=== PATIENT | female | born 1930 | race Caucasian/White ===

== ENCOUNTER 2016-09-29 10:06 | Inpatient (IN) | payer MEDICARE ==
[2016-05-06 02:05] VITALS: BMI 24.3
[2016-09-29] MEDS ORDERED: MIDAZOLAM 2 MG/2 ML VIAL ONE (10:53)
[2016-09-29] MEDS ORDERED: FENTANYL 100 MCG/2 ML VIAL ONE (10:53)
[2016-09-29] MEDS ORDERED: NALOXONE 0.4 MG/ML AMPULE ONE (10:54)
[2016-09-29] MEDS ORDERED: FLUMAZENIL 0.1 MG/ML INJ 5 ML VIAL IV ONE (10:54)
[2016-09-29] MEDS ORDERED: LIDOCAINE 1% 5 ML (METHYLPARABEN FREE) ONE (10:56)
[2016-09-29 11:01] LABS: PARTIAL THROMB. TIME 25.4 SEC (22-35)
--- NOTE | 2016-09-29 14:18 | DIRPT ---
CLINICAL DATA: Status post left lung biopsy EXAM: CHEST 1 VIEW COMPARISON: None. FINDINGS: Cardiac shadow is again enlarged. Increased density is noted in the left upper lobe consistent with the recent biopsy. No significant pneumothorax is seen. Patchy changes are again seen in both lungs. No bony abnormality is noted. IMPRESSION: No evidence of post biopsy pneumothorax. Electronically Signed By: Harry Ochoa M.D. On: 09/29/2016 14:15
--- NOTE | 2016-09-29 14:19 | DIRPT ---
CLINICAL DATA: Progressive bilateral lung nodules. No known primary. Remote history of breast carcinoma. EXAM: CT GUIDED CORE BIOPSY OF LEFT UPPER LOBE PULMONARY NODULE ANESTHESIA/SEDATION: Intravenous Fentanyl and Versed were administered as conscious sedation during continuous monitoring of the patient's level of consciousness and physiological / cardiorespiratory status by the radiology teacher, with a total moderate sedation time of 55 minutes. PROCEDURE: The procedure risks, benefits, and alternatives were explained to the patient. Questions regarding the procedure were encouraged and answered. The patient understands and consents to the procedure. Select axial scans through the lungs were obtained. Comparison with prior imaging performed, a in home sales representative approachable lesion localized, and the skin entry site marked. The operative field was prepped with chlorhexidinein a sterile fashion, and a sterile drape was applied covering the operative field. A sterile gown and sterile gloves were used for the procedure. Local anesthesia was provided with 1% Lidocaine. Under CT guidance, a 17 gauge trocar needle was advanced to the margin of the lesion. Once needle tip position was confirmed, coaxial 18-gauge core biopsy samples were obtained, submitted in formalin to surgical pathology. The guide needle was removed. Post procedure scans demonstrate mild regional alveolar hemorrhage. There is mild self-limited hemoptysis. No pneumothorax. COMPLICATIONS: SIR level A: No therapy, no consequence. Regional alveolar hemorrhage and mild, self-limited hemoptysis requiring no additional treatment. FINDINGS: Multiple bilateral pulmonary nodules are again identified. A in home sales representative peripheral anterior left upper lobe lesion was identified and core biopsy samples obtained. IMPRESSION: 1. Technically successful CT-guided core biopsy of left upper lobe pulmonary nodule. Follow-up chest radiography and observation is scheduled. Electronically Signed By: Dee Blair M.D. On: 09/29/2016 14:16
--- NOTE | 2016-09-29 14:19 | DIRPT ---
CLINICAL DATA: Progressive bilateral lung nodules. No known primary. Remote history of breast carcinoma. EXAM: CT GUIDED CORE BIOPSY OF LEFT UPPER LOBE PULMONARY NODULE ANESTHESIA/SEDATION: Intravenous Fentanyl and Versed were administered as conscious sedation during continuous monitoring of the patient's level of consciousness and physiological / cardiorespiratory status by the supervisor commissary production, with a total moderate sedation time of 55 minutes. PROCEDURE: The procedure risks, benefits, and alternatives were explained to the patient. Questions regarding the procedure were encouraged and answered. The patient understands and consents to the procedure. Select axial scans through the lungs were obtained. Comparison with prior imaging performed, a manufacturers service representative approachable lesion localized, and the skin entry site marked. The operative field was prepped with chlorhexidinein a sterile fashion, and a sterile drape was applied covering the operative field. A sterile gown and sterile gloves were used for the procedure. Local anesthesia was provided with 1% Lidocaine. Under CT guidance, a 17 gauge trocar needle was advanced to the margin of the lesion. Once needle tip position was confirmed, coaxial 18-gauge core biopsy samples were obtained, submitted in formalin to surgical pathology. The guide needle was removed. Post procedure scans demonstrate mild regional alveolar hemorrhage. There is mild self-limited hemoptysis. No pneumothorax. COMPLICATIONS: SIR level A: No therapy, no consequence. Regional alveolar hemorrhage and mild, self-limited hemoptysis requiring no additional treatment. FINDINGS: Multiple bilateral pulmonary nodules are again identified. A manufacturers service representative peripheral anterior left upper lobe lesion was identified and core biopsy samples obtained. IMPRESSION: 1. Technically successful CT-guided core biopsy of left upper lobe pulmonary nodule. Follow-up chest radiography and observation is scheduled. Electronically Signed By: Dee Blair M.D. On: 09/29/2016 14:16
[2016-09-29] MEDS ORDERED: CLORAZEPATE DIPOTASSIUM 3.75 MG TAB PO ONE (15:00)
[2016-09-29 17:03] LABS: ABG Draw Site Right Radial; ALLEN'S TEST PASS; BEb 2.5 (+/- 2); TCO2 27.4 MMOL/L (23-27)
[2016-09-29] MEDS ORDERED: Albuterol/Ipratropium Neb 3 ML NEB NEB PRN (17:23)
[2016-09-29] MEDS ORDERED: hydrALAZINE 20 MG/ML VIAL IV PRN (17:59)
[2016-09-29] MEDS ORDERED: hydrALAZINE 20 MG/ML VIAL ONE (18:05)
[2016-09-29] MEDS ORDERED: ONDANSETRON HCL 4 MG/2 ML VIAL ONE (18:43)
[2016-09-29] MEDS ORDERED: ONDANSETRON HCL 4 MG/2 ML VIAL IV PRN (18:44)
[2016-09-29] MEDS ORDERED: Vaccine Screening Complete SCH (19:00)
[2016-09-29] MEDS ORDERED: NS 1,000 ML IV ONE (19:21)
--- NOTE | 2016-09-29 19:28 | HISTPHYS ---
- Chief Complaint I had a biopsy mild lung today at 10:15 a.m. and blood pressure has gone up to a systolic of 200 and I coughed/vomited blood at 7:50 p.m. 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 Holliday to center in for lung biopsy today. - Medical History Cardiac History: Reports: Hypertension, Syncope (March 2016) Respiratory History: Reports: No Significant History GI/ History: Reports: Kidney Stones Musculoskeletal History: Reports: Arthritis (bilteral hands) Systemic History: Reports: Cancer (Breast cancer) Psychological History: Reports: Anxiety. Denies: Depression - Surgical History Reports: Cholecystectomy (1989), Tonsillectomy/Adnoidectomy (age 12) - Medictions/Allergies Allergies levofloxacin [From Levaquin] Allergy (Severe, Verified 04/01/16 19:58) Nausea/Vomiting propafenone HCl [From Rythmol] Allergy (Severe, Verified 04/01/16 19:58) Hives* aliskiren hemifumarate [From Tekturna] Allergy (Verified 04/01/16 19:58) Unknown amlodipine besylate [From Exforge] Allergy (Verified 04/01/16 19:58) Unknown clonidine Allergy (Verified 04/01/16 19:58) Nausea/Vomiting nebivolol HCl [From Bystolic] Allergy (Verified 04/01/16 19:58) Nausea/Vomiting olmesartan medoxomil [From Benicar] Allergy (Verified 04/01/16 19:58) Nausea/Vomiting warfarin sodium [From Coumadin] Allergy (Verified 04/01/16 19:58) Bleeding Current Medication List: Reviewed Home Medications Amiodarone [Cordarone, Pacerone] 200 mg PO QAM 03/10/13 Aspirin (Enteric Coated) [Halfprin] 81 mg PO DAILY 03/10/13 Clorazepate Dipotassium 3.75 mg PO Q8H PRN 03/10/13 Red Yeast Rice 600 mg PO DAILY 04/22/15 Anastrozole [Arimidex] 1 mg PO DAILY 04/01/16 Valsartan/Hydrochlorothiazide [Valsartan-Hctz 320-25 mg Tab] 1 tab PO DAILY 06/07 Esomeprazole Mag Trihydrate [Nexium] 40 mg PO DAILY 05/05/16 [place]-3 Fatty Acids/Fish Oil [Fish Oil 1,000 mg Capsule] 1 cap PO DAILY Acetaminophen [Tylenol] 650 mg PO QID #120 tablet 05/10/16 Carvedilol [Coreg] 6.25 mg PO HS #60 tablet 05/10/16 - Family History Reports: Hypertension (mother and fathers side), Cancer (mother- mouth, sister pancreatic ca), Cardiac Disorders (sister). Denies: Diabetes, Stroke - Social History Travel Outside of [place] in the Last 3 Months?: No Lives: With Family (Son stays with her recently) Smoking Status: Never smoker Social History: Denies: Alcohol Use, Other Substance Use - Review of Systems Constitutional: No Symptoms Reported (No Fever, chills, wt loss/gain, diaphoresis,fatigue/malaise.) Eyes: No Symptoms Reported (No blurry vision, visual changes, eye pain, or eye redness.) Ears: No Symptoms Reported (No ear pain or discharge) Nose: No Symptoms Reported (No nasal discharge/congestion or bleeding) Mouth: No Symptoms Reported (No oropharyngeal lesions or erythema) Throat/Neck: No Symptoms Reported (No throat pain or swelling.No oropharyngeal lesions or erythema.) Respiratory: Cough, Hemoptysis Cardiovascular: Palpitations (History of atrial fibrillation) Gastrointestinal: Nausea, Vomiting (Vomited small amount of blood today after lung biopsy and cough) Genitourinary: No Symptoms Reported (No dysuria or hematuria.) Neurological: No Symptoms Reported (No headache, dizziness, seizures, or focal weakness.) Musculoskeletal:: No Symptoms Reported Integumentary: No Symptoms Reported (no rashes or lesions) Allergic/Immunologic: No Symptoms Reported (no rashes or lesions) Hematologic: No Symptoms Reported (No chronic anemia, bleeding, or easy bruising.), Other (Lymphatics- no lymph node swelling or pain.) Endocrine: Osteoporosis Psychiatric: Anxiety - Physical Exam Vital Signs: Initial Vitals Temperature 97.8 F 09/29/16 17:15 Pulse Rate 69 09/29/16 17:15 Respiratory Rate 18 09/29/16 17:15 Blood Pressure 200/79 H 09/29/16 17:15 Pulse Oxygen Saturation 99 09/29/16 17:15 Constitutional: Alert (Awake, Fully oriented. Normal and appropriate affect.Well appearing. Well nourished.), No apparent distress Oriented to: Time, Person, Place - HEENT Head: Normal (normocephalic, atraumatic.), Other (No cervical lymphadenopathy. No supraclavicular lymphadenopathy. Neck: No palpable mass, supple , trachea midline.) Eye: Normal (pupils equal, reactive to light, and round; EOMI, Sclera white) Oropharynx: Normal (Pharynx: Moist without exudate,Gums-no swelling, No oropharyngeal lesions or erythema, Mucous membranes are dry.) ENT EAC: Normal (No oropharyngeal lesions or erythema. Mucous membranes are dry. ) TMJ: Normal Nose: No Symptoms Reported (septum midline, Nares patent, without discharge or bleeding.) Respiratory: Normal - CTA (Clear to auscultation bilaterally. No wheezing, rales , rhonchi. Chest wall movements are symmetric. No use of accessory muscles to breathe.) Cardiovascular: Normal. negative: Bradycardia, Tachycardia, Diastolic murmur, Systolic murmur, Gallop/S3, Gallop/S4 - GI Auscultation: Normal (normal active sounds) Palpation: Normal (Soft,non distended,nontender. No hepatosplenomegaly.) Tenderness: Non tender (No rebound or guarding) 's Sign: Negative - Musculoskeletal Back: Normal (Non-Tender) Extremities: Normal (Normal tone, DP pulses 2+ bilaterally, No cyanosis or edema bilaterally, FROM bilaterally.) Spine: non-tender - Integumentary Skin: Normal (Clean, dry, and intact. No rashes. No lesions.) Lymphatics: Normal (No cervical lymphadenopathy. No supraclavicular lymphadenopathy.) - Neurologic Memory Impaired: Normal Motor Function: Normal (Motor 5/5 throughout.Normal tone, Pulses 2+ No cyanosis or edema, FROM) Cranial Nerve: Normal (CN II-XII intact sensation, strength 5/5) Cerebellar: Normal. negative: Ataxia, Past-Pointing, Tremor Mood Description: Normal (Fully oriented. Normal and appropriate affect.) Perception: Normal (Normal and appropriate affect.) - Focused CV Perfusion Exam Vital Signs: Last Vital Signs Temp 98.2 F 09/29/16 19:05 Pulse 41 L 09/29/16 19:10 Resp 16 09/29/16 19:05 BP 120/48 L 09/29/16 19:16 Pulse Ox 95 09/29/16 19:05 - Lab Results 09/29/16 19:20 09/29/16 19:20 Laboratory Results - last 24 hr 09/29/16 09/29/16 09/29/16 10:38 16:58 19:14 WBC RBC Hgb Hct MCV MCH MCHC RDW Plt Count MPV Neut % (Auto) Lymph % (Auto) [place] % (Auto) Eos % (Auto) Baso % (Auto) Absolute Neuts (auto) Absolute Lymphs (auto) PT 10.7 INR 1.0 APTT 25.4 Puncture Site Right radial pH 7.460 H pCO2 37.0 pO2 86.0 HCO3 26.3 H Total CO2 27.4 H Base Excess 2.5 H FiO2 % 2lpm nc Specimen Drawn By Garsa Sodium Potassium Chloride Carbon Dioxide Anion Gap BUN Creatinine Estimated GFR (MDRD) Glucose POC Capillary Glucose 103 H Calculated Osmolality Calcium Corrected Calcium Magnesium Total Bilirubin AST ALT Alkaline Phosphatase Troponin I Total Protein Albumin 09/29/16 09/29/16 09/29/16 19:20 19:20 19:20 WBC 5.1 RBC 4.03 L Hgb 10.5 L Hct 32.1 L MCV 80 L MCH 26.1 L MCHC 32.7 L RDW 18.2 H Plt Count 233 MPV 8.0 Neut % (Auto) 61.2 Lymph % (Auto) 23.4 [place] % (Auto) 9.5 Eos % (Auto) 4.6 Baso % (Auto) 1.3 Absolute Neuts (auto) 3.11 Absolute Lymphs (auto) 1.17 PT INR APTT Puncture Site pH pCO2 pO2 HCO3 Total CO2 Base Excess FiO2 % Specimen Drawn By Sodium 142 Cancelled Potassium 2.8 L Cancelled Chloride 110 H Cancelled Carbon Dioxide 25 Cancelled Anion Gap 10 Cancelled BUN 21 H Cancelled Creatinine 0.70 Cancelled Estimated GFR (MDRD) > 60 Cancelled Glucose 98 Cancelled POC Capillary Glucose Calculated Osmolality 276 Cancelled Calcium 8.5 Cancelled Corrected Calcium 9.9 Cancelled Magnesium 1.90 Total Bilirubin 0.9 Cancelled AST 75 H Cancelled ALT 67 H Cancelled Alkaline Phosphatase 72 Cancelled Troponin I 0.03 Total Protein 5.6 L Cancelled Albumin 2.6 L Cancelled 09/29/16 19:20 WBC RBC Hgb Hct MCV MCH MCHC RDW Plt Count MPV Neut % (Auto) Lymph % (Auto) [place] % (Auto) Eos % (Auto) Baso % (Auto) Absolute Neuts (auto) Absolute Lymphs (auto) PT INR APTT Puncture Site pH pCO2 pO2 HCO3 Total CO2 Base Excess FiO2 % Specimen Drawn By Sodium Potassium Chloride Carbon Dioxide Anion Gap BUN Creatinine Estimated GFR (MDRD) Glucose POC Capillary Glucose Calculated Osmolality Calcium Corrected Calcium Magnesium Cancelled Total Bilirubin AST ALT Alkaline Phosphatase Troponin I Total Protein Albumin - Diagnostic Findings Repeat chest x-ray this afternoon showed likely small amount of bleeding to the biopsy site and will film repeat in a.m.. - Assessment (1) Pulmonary nodule seen on imaging study R91.1 - SOLITARY PULMONARY NODULE Chronic Present on Admission: Yes Pulmonary nodules more noticeable and biopsy taken left upper lobe lesion with some bleeding post biopsy and patient has coughed up small amount of blood. Monitor hemoglobin and follow-up chest x-ray for pneumothorax and/or hemothorax. Concerned she has another malignancy or metastasis from the breast cancer. (2) Hypokalemia E87.6 - HYPOKALEMIA Acute Present on Admission: Yes Replace and monitor (3) Atrial fibrillation I48.91 - UNSPECIFIED ATRIAL FIBRILLATION Chronic Present on Admission: Yes Qualifiers: Atrial fibrillation type: paroxysmal Qualified Code(s): I48.0 - Paroxysmal atrial fibrillation Patient does not tolerate Coumadin well. (4) Breast cancer C50.919 - MALIGNANT NEOPLASM OF UNSP SITE OF UNSPECIFIED FEMALE BREAST Chronic Present on Admission: Yes Qualifiers: Breast location: unspecified site of breast Laterality: unspecified laterality Qualified Code(s): C50.919 - Malignant neoplasm of unspecified site of unspecified female breast Cont to follow with Dr Holliday. Pt relates difficult time tolerating her chemo pill (5) Gastroesophageal reflux disease K21.9 - GASTRO-ESOPHAGEAL REFLUX DISEASE WITHOUT ESOPHAGITIS Chronic Qualifiers: Esophagitis presence: esophagitis presence not specified Qualified Code(s) : K21.9 - Gastro-esophageal reflux disease without esophagitis Cont PPI (6) Hypertension I10 - ESSENTIAL (PRIMARY) HYPERTENSION Chronic Qualifiers: Hypertension type: essential hypertension Qualified Code(s): I10 - Essential (primary) hypertension Stable on meds (7) Pancreatic mass K86.9 - DISEASE OF PANCREAS, UNSPECIFIED Chronic Present on Admission: Yes Follow-up CT of the abdomen pelvis can be done outpatient to evaluate this pancreatic mass. - Plan Observe overnight if no complications will discharge in am. Repeat chest x-ray and BMP looking for any problems. Case Care Discussed with: Patient, Family, Nursing Staff Total Time: 54 min Critical Care: No Code: [id number]
[2016-09-29 19:56] LABS: AUTOMATED BASOPHIL 1.3 % (0-2); AUTOMATED EOSINOPHIL 4.6 % (0-5); AUTOMATED LYMPH 23.4 % (17-44); AUTOMATED MONOCYTE 9.5 % (3-10); AUTOMATED NEUTROPHIL 61.2 % (45-76)
--- NOTE | 2016-09-29 19:58 | DIRPT ---
CLINICAL DATA: Shortness of breath. Known left upper lobe mass. Left upper lobe mass biopsied earlier today EXAM: PORTABLE CHEST 1 VIEW COMPARISON: Chest CT September 21, 2016; chest radiograph September 29, 2016 FINDINGS: There is increased opacity in the left upper lobe which may be indicative of hemorrhage in the left upper lobe lesion which underwent biopsy earlier today. Developing pneumonia in this area is a differential consideration. Multiple nodular appearing lesions are noted in the lower lung zones and right upper lung region bilaterally consistent with metastatic disease. There is patchy airspace consolidation with small effusion left base. Heart is slightly enlarged with pulmonary vascularity within normal limits. No adenopathy is appreciable by radiography. No pneumothorax. IMPRESSION: Increased opacity in the left upper lobe. Suspect hemorrhage within the mass recently biopsied. There may also be superimposed developing pneumonia in this area. There is patchy airspace consolidation with small effusion in the left base region. There are multiple foci of metastatic disease, better appreciated on recent CT. Stable cardiac silhouette. No pneumothorax evident. Electronically Signed By: Israel Mckenna III, M.D. On: 09/29/2016 19:55
[2016-09-29 20:04] LABS: BLOOD UREA NITROGEN 21 MG/DL (7-17); CALCIUM 8.5 MG/DL (8.4-10.2); CALCULATED OSMOLALITY 276 MOs/Kg (270-290); CHLORIDE 110 mEq/L (98-107); GLUCOSE 98 mg/dL (70-99); SODIUM LEVEL 142 mEq/L (137-146)
[2016-09-29] MEDS: ACETAMINOPHEN 325 MG/TAB TABLET PO SCH (20:15)
[2016-09-29] MEDS ORDERED: Magnesium Sulfate 2 gm/D5W 2 GM/50 ML RTU IV ONE (20:57)
[2016-09-29] MEDS ORDERED: CARVEDILOL 12.5 MG TAB PO SCH (21:00)
[2016-09-29] MEDS ORDERED: CARVEDILOL 6.25 MG TAB PO SCH (21:00)
[2016-09-29 21:21] LABS: CALC CORRECTED 9.9 MG/DL (8.4-10.2); TOTAL PROTEIN 5.6 G/DL (6.3-8.2)
[2016-09-29] MEDS: KCl 10 mEq/100 ml Premix (Run) 10 MEQ/100 ML RTU IV SCH ×2 (21:33→22:59)
[2016-09-29] MEDS: POTASSIUM CHLORIDE 20 MEQ/15 ML ORAL SOLN PO SCH (21:33)
[2016-09-29] MEDS: Albuterol/Ipratropium Neb 3 ML NEB NEB SCH (22:11)
[2016-09-30] MEDS: POTASSIUM CHLORIDE 20 MEQ/15 ML ORAL SOLN PO SCH ×3 (00:19→03:07)
[2016-09-30] MEDS: KCl 10 mEq/100 ml Premix (Run) 10 MEQ/100 ML RTU IV SCH (00:46)
[2016-09-30] MEDS: Albuterol/Ipratropium Neb 3 ML NEB NEB SCH ×4 (02:03→19:17)
[2016-09-30 04:54] LABS: AUTOMATED BASOPHIL 1.3 % (0-2); AUTOMATED EOSINOPHIL 1.5 % (0-5); AUTOMATED LYMPH 24.3 % (17-44); AUTOMATED MONOCYTE 11.2 % (3-10); AUTOMATED NEUTROPHIL 61.7 % (45-76); MPV 8.1 fL (7.4-10.4)
[2016-09-30 05:10] LABS: BLOOD UREA NITROGEN 18 MG/DL (7-17); CALCIUM 8.7 MG/DL (8.4-10.2); CALCULATED OSMOLALITY 274 MOs/Kg (270-290); CHLORIDE 109 mEq/L (98-107); GLUCOSE 108 mg/dL (70-99); SODIUM LEVEL 141 mEq/L (137-146)
[2016-09-30] MEDS: PANTOPRAZOLE 40 MG TAB PO SCH (06:15)
--- NOTE | 2016-09-30 07:33 | DIRPT ---
CLINICAL DATA: Recent lung biopsy with questionable hemothorax EXAM: PORTABLE CHEST 1 VIEW COMPARISON: September 29, 2016 FINDINGS: Compared to 1 day prior, there is less ill-defined opacity surrounding a known mass in the left upper lobe. There is no new opacity. Nodular appearing lesions bilaterally are consistent with metastatic disease. There is patchy airspace consolidation with small effusion in the left base, stable. Heart is slightly enlarged with pulmonary vascularity within normal limits, stable. No demonstrable adenopathy. No pneumothorax. IMPRESSION: Less opacity surrounding known left upper lobe mass. Persistent patchy airspace consolidation with small effusion left base. Evidence of underlying metastatic disease. No change in cardiac silhouette. No new opacity evident. Electronically Signed By: Israel Mckenna III, M.D. On: 09/30/2016 07:31
[2016-09-30] MEDS: ANASTROZOLE 1 MG TAB PO SCH (08:03)
[2016-09-30] MEDS: VALSARTAN 160 MG TAB PO SCH (08:03)
[2016-09-30] MEDS: ACETAMINOPHEN 325 MG/TAB TABLET PO SCH (08:03)
[2016-09-30] MEDS: HYDROCHLOROTHIAZIDE 25 MG TAB PO SCH (08:04)
[2016-09-30] MEDS: OMEGA-3-ACID ETHYL ESTERS 1000 MG CAP PO SCH (08:04)
[2016-09-30] MEDS ORDERED: Non-Formulary Medication ITEM (Esomeprazole Mag Trihydrate [Nexium] 40 MG) PO SCH (09:00)
[2016-09-30] MEDS ORDERED: VALSARTAN PO SCH (09:00)
[2016-09-30] MEDS ORDERED: HYDROCHLOROTHIAZIDE PO SCH (09:00)
[2016-09-30] MEDS ORDERED: RED YEAST RICE 600 MG PO SCH (09:00)
[2016-09-30] MEDS ORDERED: AMIODARONE 200 MG TAB PO SCH (09:00)
[2016-09-30] MEDS ORDERED: [UNRECOGNIZED DRUG - OTHER] PO SCH (09:00)
[2016-09-30] MEDS ORDERED: ATROPINE 1 MG/10 ML PFS IV ONE (10:33)
--- NOTE | 2016-09-30 11:37 | PCM.CARDCO ---
Consultation Date: 09/30/16 Requesting Physician: Jono Farris Pet Caregiver: Tae Winter Consult Reason: Syncope - History of Present Illness histroy of AF on amiodarone and coreg. last night sinus bradycardia with syncope and recurred on commode today, rates in 30"s with SN or AV node block. She related previous episodes Admitted to the hospital after hemoptysis and transient shortness of breath with lung biopsy. For Hypertension she received IV hydralazine developed sinus bradycardia in the 30s and syncope last evening. Similar episode this morning which occurred when she was straining at stool and toilet. She tells me she has had other episodes spontaneously and for atrial fibrillation is maintained on amiodarone and a beta-luis. I had seen her in years and likely decades of before for the same problem. 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 Chief Complaint: I had a biopsy mild lung today at 10:15 a.m. and blood pressure has gone up to a systolic of 200 and I coughed/vomited blood at 7:50 p.m. - Past Medical and Surgical History Cardiac History: Reports: No Significant History, Atrial Fibrillation, Hypertension, Syncope (March 2016) Respiratory History: Reports: No Significant History GI/ History: Reports: No Significant History, Kidney Stones, Gastroesophageal Reflux Systemic History: Reports: No Significant History, Cancer (Breast cancer) Musculoskeletal History: Reports: No Significant History, Arthritis (bilteral hands), Osteoarthritis (Both hands.) Psychological History: Reports: No Significant History, Anxiety. Denies: Depression, Alcoholism, Substance Use Disorder Neurological History: Reports: No Significant History Past Surgical History: Reports: No Significant History, Cholecystectomy (1989), Hysterectomy, Tonsillectomy/Adnoidectomy (age 12), Other (Lumpectomy for breast cancer, total thyroidectomy) Allergies hydralazine Allergy (Severe, Verified 09/29/16 21:05) See Comments drops B/P SEVERELY levofloxacin [From Levaquin] Allergy (Severe, Verified 04/01/16 19:58) Nausea/Vomiting propafenone HCl [From Rythmol] Allergy (Severe, Verified 04/01/16 19:58) Hives* aliskiren hemifumarate [From Tekturna] Allergy (Verified 04/01/16 19:58) Unknown amlodipine besylate [From Exforge] Allergy (Verified 04/01/16 19:58) Unknown clonidine Allergy (Verified 04/01/16 19:58) Nausea/Vomiting nebivolol HCl [From Bystolic] Allergy (Verified 04/01/16 19:58) Nausea/Vomiting olmesartan medoxomil [From Benicar] Allergy (Verified 04/01/16 19:58) Nausea/Vomiting warfarin sodium [From Coumadin] Allergy (Verified 04/01/16 19:58) Bleeding Home Medications Amiodarone [Cordarone, Pacerone] 200 mg PO QAM 03/10/13 Aspirin (Enteric Coated) [Halfprin] 81 mg PO DAILY 03/10/13 Anastrozole [Arimidex] 1 mg PO DAILY 04/01/16 Valsartan/Hydrochlorothiazide [Valsartan-Hctz 320-25 mg Tab] 1 tab PO DAILY 06/07 Carvedilol [Coreg] 6.25 mg PO BID 09/30/16 HydrALAZINE (Cardiovascular) [Apresoline] 25 mg PO .TID WITH FOOD 09/30/16 Tramadol HCl [Ultram] 50 mg PO Q4H PRN 09/30/16 - Social History Travel Outside of [place] in the Last 3 Months?: No Lives: With Family (Son stays with her recently) Smoking Status: Never smoker Social History: Denies: Alcohol Use, Other Substance Use - Family History Reports: No Significant History, Hypertension (mother and fathers side), Cancer (mother- mouth, sister pancreatic ca), Cardiac Disorders (sister). Denies: Diabetes, Stroke - Review of Systems Yes All systems reviewed and were negative except as marked Constitutional: No Symptoms Reported (No Fever, chills, wt loss/gain, diaphoresis,fatigue/malaise.) - Respiratory Cough, Hemoptysis, Shortness of Breath - Cardiovascular Syncope. negative: Chest Pain, Orthopnea, Palpitations - Physical Exam Constitutional: Alert (Awake, Fully oriented. Normal and appropriate affect.Well appearing. Well nourished.), No apparent distress Oriented to: Time, Person, Place Exam: Last Vital Signs Temp 98 F 09/30/16 11:17 Pulse 64 09/30/16 11:17 Resp 18 09/30/16 11:17 BP 115/54 L 09/30/16 11:17 Pulse Ox 94 09/30/16 11:17 Intake & Output 09/29/16 09/30/16 09/30/16 23:59 07:59 15:59 Intake Total 514 240 Output Total 200 400 Balance -200 514 -160 Patient's weight 142 lb 2 oz - HEENT Head: Normal (no bruit, NVD or thyromegaly, she has a thyroid surgery scar), Other (No cervical lymphadenopathy. No supraclavicular lymphadenopathy. Neck: No palpable mass, supple , trachea midline.) Eye: Normal (pupils equal, reactive to light, and round; EOMI, Sclera white) Oropharynx: Normal (Pharynx: Moist without exudate,Gums-no swelling, No oropharyngeal lesions or erythema, Mucous membranes are dry.) ENT EAC: Normal (No oropharyngeal lesions or erythema. Mucous membranes are dry. ) TMJ: Normal Nose: No Symptoms Reported (septum midline, Nares patent, without discharge or bleeding.) - Respiratory/Cardiovascular Respiratory: Diminished. negative: Rales, Rhonchi, Wheezes Cardiovascular: Normal. negative: Systolic murmur, Gallop/S3 - GI Auscultation: Normal (normal active sounds) Palpation: Normal (Soft,non distended,nontender. No hepatosplenomegaly.) Tenderness: Non tender (No rebound or guarding) - Musculoskeletal Back: Normal (Non-Tender) Extremities: Normal (Normal tone, DP pulses 2+ bilaterally, No cyanosis or edema bilaterally, FROM bilaterally.), Femoral Pulse, Pedal Pulse, Radial Pulse. negative: Calf Tenderness, Clubbing, Cyanosis, Edema, Pedal Edema - Integumentary Skin: Normal (Clean, dry, and intact. No rashes. No lesions.) Lymphatics: Normal (No cervical lymphadenopathy. No supraclavicular lymphadenopathy.) - Neurologic Memory Impaired: Normal Cerebellar: Normal. negative: Ataxia, Past-Pointing, Tremor Mood Description: Normal (Fully oriented. Normal and appropriate affect.) Perception: Normal (Normal and appropriate affect.) - Diagnostic Findings Laboratory Tests 09/29/16 09/29/16 09/29/16 10:38 16:58 19:20 Hgb Hct INR 1.0 pH 7.460 H pCO2 37.0 pO2 86.0 Potassium Creatinine Troponin I 0.03 09/30/16 09/30/16 04:35 04:35 Hgb 10.7 L Hct 32.3 L INR pH pCO2 pO2 Potassium 3.4 L Creatinine 0.70 Troponin I - Assessment/Plan (1) PAF (paroxysmal atrial fibrillation) I48.0 - PAROXYSMAL ATRIAL FIBRILLATION Chronic Present on Admission: No Comment: Presently having symptomatic bradycardia in view of her comorbidities especially cancer I think she is best served by holding her cardiac medications worsened bradycardia especially knowing that will take weeks and months to lose the effective amiodarone. If this episodes continued to recur and if her care is more than palliative she would be well served with pacemaker to alleviate symptoms and avoid injury. I would be hesitant to recommend at this time. (2) SSS (sick sinus syndrome) I49.5 - SICK SINUS SYNDROME Chronic Comment: She is a combination of sinus node dysfunction with symptomatic bradycardia suppressant medications and underlying atrial fibrillation plan as above. I would not revisit the issue of elective anticoagulation at this time (3) Sinus bradycardia R00.1 - BRADYCARDIA, UNSPECIFIED Acute Present on Admission: No Comment: Symptomatic best served by withdrawal a suppressant medications and if she continues to have episodes consider the merits of a pacemaker for relief of symptoms of syncope. Case Care Discussed with: Patient, Nursing Staff (And her attending physician)
--- NOTE | 2016-09-30 13:55 | GENMEDPROG ---
Chief Complaint: Called emergently to code blue. Patient with vagal event while going to the bathroom. Heart rate dropped into the 30s junctional rhythm. She was hypotensive and unresponsive. Was given atropine and pulse of IV fluid with improvement in symptoms. Now significantly better. Similar episode yesterday evening after receiving hydralazine. Notes Reviewed: Yes: Events from last night noted and discussed with Clinical Staff Current Medication List: Reviewed Currently: Denies: Cough, Wheezing, BAEZA, SOB, Nausea and Vomiting, Abdominal Pain, Chest Pain - Physical Examination Vital Signs and I&O: Last Vital Signs Temp 98 F 09/30/16 11:17 Pulse 64 09/30/16 11:17 Resp 18 09/30/16 11:17 BP 115/54 L 09/30/16 11:17 Pulse Ox 94 09/30/16 11:17 Oxygen Pulse Oxygen Saturation 94 O2 Device Nasal Cannula Oxygen Flow Rate 2 Fraction of Inspired Oxygen ( 100 FIO2) Intake & Output 09/27/16 09/28/16 09/29/16 09/30/16 23:59 23:59 23:59 23:59 Intake Total 994 Output Total 200 400 Balance -200 594 Patient's weight 64.467 kg General: Alert, Oriented x3, Cooperative, Mild distress. negative: Well appearing (Chronically ill-appearing) HEENT: Normal, PERRLA, EOMI, Anicteric Sclera Neck: Non-tender, Full range of motion, Normal Trachea alignment. negative: JVD Lymphatics: Normal (No cervical lymphadenopathy. No supraclavicular lymphadenopathy.) Respiratory: Diminished. negative: Rales, Rhonchi, Wheezes Cardiovascular: Regular rate and rhythm, No Gallops,Rubs/Murmurs GI: Normal bowel sounds, Soft, Non tender, No hepatospenomegaly Extremities/Musculoskeletal: Normal pulses. negative: Tenderness, Swelling, Edema Skin: Warm,Dry and Intact, No rashes, No breakdown, No significant lesion Neurological: Normal speech, Strength at 5/5 X4 ext, Normal tone Psych/Mental Status: Appropriate, Normal Affect Lab/DI/Studies Reviewed: Laboratory Results - last 24 hr 09/29/16 09/29/16 09/29/16 16:58 19:14 19:20 WBC RBC Hgb Hct MCV MCH MCHC RDW Plt Count MPV Neut % (Auto) Lymph % (Auto) [place] % (Auto) Eos % (Auto) Baso % (Auto) Absolute Neuts (auto) Absolute Lymphs (auto) Puncture Site Right radial pH 7.460 H pCO2 37.0 pO2 86.0 HCO3 26.3 H Total CO2 27.4 H Base Excess 2.5 H FiO2 % 2lpm nc Specimen Drawn By Garsa Sodium 142 Potassium 2.8 L Chloride 110 H Carbon Dioxide 25 Anion Gap 10 BUN 21 H Creatinine 0.70 Estimated GFR (MDRD) > 60 Glucose 98 POC Capillary Glucose 103 H Calculated Osmolality 276 Calcium 8.5 Corrected Calcium 9.9 Magnesium 1.90 Total Bilirubin 0.9 AST 75 H ALT 67 H Alkaline Phosphatase 72 Troponin I 0.03 Total Protein 5.6 L Albumin 2.6 L 09/29/16 09/29/16 09/29/16 19:20 19:20 19:20 WBC 5.1 RBC 4.03 L Hgb 10.5 L Hct 32.1 L MCV 80 L MCH 26.1 L MCHC 32.7 L RDW 18.2 H Plt Count 233 MPV 8.0 Neut % (Auto) 61.2 Lymph % (Auto) 23.4 [place] % (Auto) 9.5 Eos % (Auto) 4.6 Baso % (Auto) 1.3 Absolute Neuts (auto) 3.11 Absolute Lymphs (auto) 1.17 Puncture Site pH pCO2 pO2 HCO3 Total CO2 Base Excess FiO2 % Specimen Drawn By Sodium Cancelled Potassium Cancelled Chloride Cancelled Carbon Dioxide Cancelled Anion Gap Cancelled BUN Cancelled Creatinine Cancelled Estimated GFR (MDRD) Cancelled Glucose Cancelled POC Capillary Glucose Calculated Osmolality Cancelled Calcium Cancelled Corrected Calcium Cancelled Magnesium Cancelled Total Bilirubin Cancelled AST Cancelled ALT Cancelled Alkaline Phosphatase Cancelled Troponin I Total Protein Cancelled Albumin Cancelled 09/30/16 09/30/16 09/30/16 04:35 04:35 04:35 WBC 4.5 RBC 4.08 L Hgb 10.7 L Hct 32.3 L MCV 79 L MCH 26.2 L MCHC 33.1 RDW 18.3 H Plt Count 229 MPV 8.1 Neut % (Auto) 61.7 Lymph % (Auto) 24.3 [place] % (Auto) 11.2 H Eos % (Auto) 1.5 Baso % (Auto) 1.3 Absolute Neuts (auto) 2.75 Absolute Lymphs (auto) 1.08 Puncture Site pH pCO2 pO2 HCO3 Total CO2 Base Excess FiO2 % Specimen Drawn By Sodium 141 Potassium 3.4 L Chloride 109 H Carbon Dioxide 26 Anion Gap 9 BUN 18 H Creatinine 0.70 Estimated GFR (MDRD) > 60 Glucose 108 H POC Capillary Glucose Calculated Osmolality 274 Calcium 8.7 Corrected Calcium Magnesium 1.90 Total Bilirubin AST ALT Alkaline Phosphatase Troponin I Total Protein Albumin - Assessment (1) SSS (sick sinus syndrome) Chronic I49.5 - SICK SINUS SYNDROME Comment/Plan: Called urgently to code blue. Patient was going to the bathroom when she became bradycardic and unresponsive. Heart rate was in low 30s and a junctional rhythm. Blood pressure dropped to 80s systolic. Given atropine with improvement in symptoms. She had similar episode yesterday evening after receiving hydralazine. She is on both amiodarone and Coreg. I discussed her case with her integrated specialist Dr. Merrill. Has a history of poor compliance with medications and follow-up but significant intolerance and sensitivities to most cardiac medications. They do not aggressively titrate her medications as she has had similar episodes to this in the past. Last time she was in Dr. Merrill is office her blood pressure was 230/95. They elected not to treat this. We talked about appropriate treatment options and for now will hold Coreg and amiodarone. We both recognize that there is a risk of worsening hypertension or sick sinus syndrome but for now would not support placement of pacemaker and does not feel she needs to be transferred currently. Have asked Cardiology here to see in consultation. (2) Vasovagal syncope Acute R55 - SYNCOPE AND COLLAPSE Comment/Plan: As above. This is been a recurrent problem. Extreme sensitivities to medications and intolerant to treatment of hypertension (3) Sinus bradycardia Acute R00.1 - BRADYCARDIA, UNSPECIFIED Comment/Plan: Resolved with atropine. Likely vagal event. Suspect underlying sick sinus syndrome. Holding Coreg and amiodarone (4) PAF (paroxysmal atrial fibrillation) Chronic I48.0 - PAROXYSMAL ATRIAL FIBRILLATION Comment/Plan: Not a candidate for anticoagulation due to falls and repeated syncopal events as well as noncompliance. (5) Gastroesophageal reflux disease Chronic K21.9 - GASTRO-ESOPHAGEAL REFLUX DISEASE WITHOUT ESOPHAGITIS Qualifiers: Esophagitis presence: esophagitis presence not specified Qualified Code(s) : K21.9 - Gastro-esophageal reflux disease without esophagitis Comment/Plan: Cont PPI (6) Hypertension Chronic I10 - ESSENTIAL (PRIMARY) HYPERTENSION Qualifiers: Hypertension type: essential hypertension Qualified Code(s): I10 - Essential (primary) hypertension Comment/Plan: Will not treat as per discussion above. (7) Pulmonary nodule seen on imaging study Chronic R91.1 - SOLITARY PULMONARY NODULE Comment/Plan: Pulmonary nodules more noticeable and biopsy taken left upper lobe lesion with some bleeding post biopsy and patient has coughed up small amount of blood. Monitor hemoglobin and follow-up chest x-ray for pneumothorax and/or hemothorax. Concerned she has another malignancy or metastasis from the breast cancer. Case Care Discussed with: Consultants (Dr. Winter and Dr. Merrill as above), Family (Discussed with son over the phone few minutes after the event above. He was very verbally abusive and threatening. Clearly very angry. Made comments suggesting we were doing this for the money and that our care was poor. Explained all treatment plans and options at length but remains angry and upset. He unfortunately slammed phone and hung up on me.), Nursing Staff, Physical Therapy, Resource Management Total Time: 1 hour 30 minutes Critical Care: Yes
[2016-09-30] MEDS ORDERED: ALPRAZOLAM 0.25 MG TAB PO ONE (15:45)
[2016-09-30] MEDS: CLORAZEPATE DIPOTASSIUM 3.75 MG TAB PO PRN (23:30)
[2016-10-01] MEDS: Albuterol/Ipratropium Neb 3 ML NEB NEB SCH ×4 (01:13→19:14)
[2016-10-01 05:23] LABS: BLOOD UREA NITROGEN 16 MG/DL (7-17); CALCIUM 8.5 MG/DL (8.4-10.2); CALCULATED OSMOLALITY 268 MOs/Kg (270-290); CHLORIDE 106 mEq/L (98-107); GLUCOSE 87 mg/dL (70-99); SODIUM LEVEL 139 mEq/L (137-146)
[2016-10-01] MEDS: PANTOPRAZOLE 40 MG TAB PO SCH (05:41)
--- NOTE | 2016-10-01 07:52 | PCM.CARD ---
- Subjective Reason for visit: Sick sinus syndrome sinus bradycardia with syncope Current Assessment: No New Symptoms, Cough, Shortness of Breath. negative: Chest Pain, Syncope Vital Signs: Last Vital Signs Temp 98.2 F 10/01/16 04:00 Pulse 72 10/01/16 05:44 Resp 20 10/01/16 04:00 BP 138/65 10/01/16 04:00 Pulse Ox 92 10/01/16 04:00 Respiratory: Diminished Jugular Vein Distention: None Pulse Rhythm: Regular (No edema) EKG Rhythm: Sinus Bradycardia (Transient sinus bradycardia 35 to 50 beats per minute nocturnally, no episodes of AVB or sinus node block) Lab/DI Results Reviewed: Monitor with no recurrent episodes of symptomatic bradycardia - Assessment/Plan (1) PAF (paroxysmal atrial fibrillation) Chronic I48.0 - PAROXYSMAL ATRIAL FIBRILLATION Present on Admission: No Comment/Plan: Presently off amiodarone due to concerns of pulmonary toxicity and also symptomatic bradycardia. 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 I would not rechallenge her with amiodarone or restart a beta-luis with her symptomatic sinus bradycardia.
[2016-10-01] MEDS: ANASTROZOLE 1 MG TAB PO SCH (08:24)
[2016-10-01] MEDS: OMEGA-3-ACID ETHYL ESTERS 1000 MG CAP PO SCH (08:24)
[2016-10-01] MEDS: METHYLPREDNISOLONE 125 MG/2 ML VIAL IV SCH ×2 (11:27→15:52)
--- NOTE | 2016-10-01 11:43 | CAPUEKG ---
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
--- NOTE | 2016-10-01 11:43 | CAPUEKG ---
[place], [place] Test Date: 2016-09-29 Pat Name: RENA ROJO Department: Room: 452 Gender: Female Healthcare Financial Analyst: SATNAM SPEARSB: Requested By: Order Number: Reading MD: Tae Winter MD Measurements Intervals [place] Rate: 64 P: 91 [place]: 208 QRS: 16 QRSD: 114 T: 214 QT: 540 QTc: 557 Interpretive Statements Normal sinus rhythm Left ventricular hypertrophy with repolarization abnormality Prolonged QT Abnormal ECG Electronically Signed On 10-01-16 11:43:24 EST by Tae Winter MD <[id number]> [id number]
--- NOTE | 2016-10-01 12:44 | GENMEDPROG ---
Chief Complaint: Biopsy consistent with Boop. No evidence of malignancy. Notified patient and also called her son. Notes Reviewed: Yes: Events from last night noted and discussed with Clinical Staff Current Medication List: Reviewed Currently: Denies: Cough, Wheezing, BAEZA, SOB, Nausea and Vomiting, Abdominal Pain, Chest Pain - Physical Examination Vital Signs and I&O: Last Vital Signs Temp 99.0 F 10/01/16 11:41 Pulse 76 10/01/16 12:22 Resp 20 10/01/16 11:41 BP 163/59 L 10/01/16 11:41 Pulse Ox 90 L 10/01/16 11:41 Oxygen Pulse Oxygen Saturation 90 O2 Device Nasal Cannula Oxygen Flow Rate 2 Fraction of Inspired Oxygen ( 100 FIO2) Intake & Output 09/28/16 09/29/16 09/30/16 10/01/16 23:59 23:59 23:59 23:59 Intake Total 2204 200 Output Total 200 400 250 Balance -200 1804 -50 Patient's weight 64.467 kg 63.957 kg General: Alert, Oriented x3, Cooperative, Mild distress. negative: Well appearing (Chronically ill-appearing) HEENT: Normal, PERRLA, EOMI, Anicteric Sclera Neck: Non-tender, Full range of motion, Normal Trachea alignment, Normal inspection. negative: JVD Lymphatics: Normal. negative: Adenopathy Respiratory: Diminished Cardiovascular: Regular rate and rhythm, No Gallops,Rubs/Murmurs GI: Normal bowel sounds, Soft, Non tender, No hepatospenomegaly, No masses Extremities/Musculoskeletal: Normal pulses. 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 No evidence of malignancy. Start high- dose IV steroids with Solu-Medrol 125 mg IV q.6. Have asked Dr. Garcia with Pulmonary to see in consultation. Supportive care and increase activity as tolerated. Have notified patient and son of findings and treatment plan (2) Pulmonary nodule seen on imaging study Chronic R91.1 - SOLITARY PULMONARY NODULE Comment/Plan: As above. Nodules consistent with BOOP (3) SSS (sick sinus syndrome) Chronic I49.5 - SICK SINUS SYNDROME Comment/Plan: No further episodes in the last 24 hours. Holding amiodarone and Coreg. If bradycardia recurs likely will need pacemaker placement. As previously noted will not treat elevated blood pressures aggressively due to intolerance and frequent episodes with medication adjustments (4) Vasovagal syncope Acute R55 - SYNCOPE AND COLLAPSE Comment/Plan: As above. This is been a recurrent problem. Extreme sensitivities to medications and intolerant to treatment of hypertension (5) Sinus bradycardia Acute R00.1 - BRADYCARDIA, UNSPECIFIED Comment/Plan: Resolved with atropine. Likely vagal event. Suspect underlying sick sinus syndrome. Holding Coreg and amiodarone (6) PAF (paroxysmal atrial fibrillation) Chronic I48.0 - PAROXYSMAL ATRIAL FIBRILLATION Comment/Plan: Not a candidate for anticoagulation due to falls and repeated syncopal events as well as noncompliance. (7) Gastroesophageal reflux disease Chronic K21.9 - GASTRO-ESOPHAGEAL REFLUX DISEASE WITHOUT ESOPHAGITIS Qualifiers: Esophagitis presence: esophagitis presence not specified Qualified Code(s) : K21.9 - Gastro-esophageal reflux disease without esophagitis Comment/Plan: Cont PPI (8) Hypertension Chronic I10 - ESSENTIAL (PRIMARY) HYPERTENSION Qualifiers: Hypertension type: essential hypertension Qualified Code(s): I10 - Essential (primary) hypertension Comment/Plan: Will not treat as per discussion above. Case Care Discussed with: Patient, Family, Nursing Staff, Resource Management
[2016-10-01] MEDS: VALSARTAN 160 MG TAB PO SCH (15:52)
[2016-10-01] MEDS: HYDROCHLOROTHIAZIDE 25 MG TAB PO SCH (15:52)
--- NOTE | 2016-10-01 23:22 | HIMCONS ---
DATE OF CONSULT: REQUESTING PHYSICIAN: Jono Farris MD. REASON FOR CONSULTATION: Bronchiolitis obliterans organizing pneumonia. HISTORY OF PRESENT ILLNESS: The patient has been having multiple lung nodules, with the baseline history of breast CA. It was decided for patient to have a CT-guided biopsy and that was done earlier 2 days ago. The biopsy result came back with cryptogenic organizing pneumonia and I was called to see the patient. In obtaining detailed history from the patient, she has not been having significant respiratory symptoms. According to her she has been having some coughing but most of the coughing started after she had the biopsy and has been feeling a whole lot better since then. She has had episodes of systolic blood pressure going very high in 200s and then at times having significant bradycardia going as low as 20, however the patient has had this for a long time and denies pacemaker placement. The patient denies any hemoptysis, hematemesis, hematochezia, melena, nausea, vomiting, diarrhea, or constipation. Denies any abdominal pain, leg pains, or swelling. She has minimal respiratory distress and has no wheezing or tightness. PAST MEDICAL HISTORY: Significant for syncope and hypertension in the past, history of kidney stones, arthritis of hands, breast cancer, anxiety, history of cholecystectomy, tonsillectomy, and adenoidectomy were also noted. ALLERGIES: PATIENT HAS MULTIPLE ALLERGIES INCLUDING LEVAQUIN, PROPAFENONE, TEKTURNA, AMLODIPINE, CLONIDINE, BYSTOLIC, BENICAR, AND COUMADIN. MEDICATIONS: Medications in the chart were noted. The patient has been on amiodarone. FAMILY HISTORY: Significant for hypertension in both parents and mother had mouth cancer. SOCIAL HISTORY: The patient lives with the family. There is no history of smoking, drinking, or drug abuse. REVIEW OF SYSTEMS: Detailed review of systems is negative except for as mentioned in the history of present illness. PHYSICAL EXAMINATION: VITAL SIGNS: Temp is 98 degrees Fahrenheit, pulse is 75, respiratory rate 16, blood pressure 153/60, pulse ox 93% on 2 liters nasal cannula. CHEST: Clear to auscultate with occasional rales. HEART: S1, S2. Regular. The patient has a systolic murmur. EXTREMITIES: No clubbing, cyanosis, or edema. ABDOMEN: Soft and nontender. Bowel sounds present. Hepatosplenomegaly is absent. NEURO: Grossly nonfocal. The patient is moving all extremities. LABORATORY DATA: White count 4.5, hemoglobin 10.7, hematocrit 32.3, and platelets are 229. Blood gas showed a pH of 7.46, pCO2 of 37, PO2 was 86 on 2 liters. Sodium 139, potassium 3.2, chloride 106, CO2 is 29, BUN 16, creatinine 0.8, glucose is 87. LFTs are within normal limits. IMAGING REPORTS: CT scan of the chest was seen personally. The patient seems to have multiple nodules, more towards the base than towards the top and some ground-glass opacities were noted as well. IMPRESSION: Cryptogenic organizing pneumonia. The cause is unknown, amiodarone could be 1 of the causes, however given the fact that the patient has been relatively stable with the exception of atrial fibrillation, I think that this can be managed with minimal amount of steroids. The patient has been on 125 mg IV Solu-Medrol q.6 hours, I would change it to prednisone 60 mg p.o. daily and over the course of the next 6-12 months we will try to taper it down, would repeat CAT scan in another 3 months to evaluate her pulmonary nodules, would need outpatient pulmonary function test on this patient. Prognosis is guarded, however would follow the patient closely. Thank you very much for the consultation. [id number]
[2016-10-02] MEDS: Albuterol/Ipratropium Neb 3 ML NEB NEB SCH ×4 (01:50→21:41)
[2016-10-02] MEDS: PANTOPRAZOLE 40 MG TAB PO SCH (06:07)
[2016-10-02 06:47] LABS: BLOOD UREA NITROGEN 19 MG/DL (7-17); CALCIUM 9.1 MG/DL (8.4-10.2); CALCULATED OSMOLALITY 272 MOs/Kg (270-290); CHLORIDE 105 mEq/L (98-107); GLUCOSE 131 mg/dL (70-99); SODIUM LEVEL 139 mEq/L (137-146)
--- NOTE | 2016-10-02 07:47 | PCM.CARD ---
- Subjective Reason for visit: For sick sinus syndrome, paroxysmal atrial fibrillation presently off amiodarone and sinus bradycardia with syncope off beta-luis Vital Signs: Last Vital Signs Temp 98.1 F 10/02/16 07:42 Pulse 72 10/02/16 07:42 Resp 22 10/02/16 07:42 BP 193/76 H 10/02/16 07:42 Pulse Ox 92 10/02/16 07:42 Lab/DI Results Reviewed: Telemetry shows sinus rhythm with a rates typically greater than 60 beats per minute - Assessment/Plan (1) PAF (paroxysmal atrial fibrillation) Chronic I48.0 - PAROXYSMAL ATRIAL FIBRILLATION Present on Admission: No Comment/Plan: stable, off amiodarone and her beta luis (2) Sinus bradycardia Acute R00.1 - BRADYCARDIA, UNSPECIFIED Present on Admission: No (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
[2016-10-02] MEDS: PREDNISONE 20 MG TAB PO SCH (08:53)
[2016-10-02] MEDS: ANASTROZOLE 1 MG TAB PO SCH (08:54)
[2016-10-02] MEDS: HYDROCHLOROTHIAZIDE 25 MG TAB PO SCH (08:55)
[2016-10-02] MEDS: VALSARTAN 160 MG TAB PO SCH (08:55)
[2016-10-02] MEDS: OMEGA-3-ACID ETHYL ESTERS 1000 MG CAP PO SCH (08:56)
--- NOTE | 2016-10-02 09:57 | PCM.PULM ---
Chief Complaint: Cryptogenic organizing pneumonia Multi lung nodules Amiodarone pulmonary toxicity Atrial fibrillation Patient alert and responsive in bed resting comfortably. Breathing is fair and on nasal oxygen Current complaints:Dyspnea, BAEZA,cough,sputum,wheeze. Denies chest pain Medication list reviewed:yes Notes reviewed:yes, Events from last night noted and discussed with Clinical Staff DVT prophylaxis:yes - Physical Examination Vital Signs and I&O: Last Vital Signs Temp 98.1 F 10/02/16 07:42 Pulse 72 10/02/16 07:42 Resp 22 10/02/16 07:42 BP 193/76 H 10/02/16 07:42 Pulse Ox 92 10/02/16 07:42 Oxygen Pulse Oxygen Saturation 92 O2 Device Nasal Cannula Oxygen Flow Rate 2 Fraction of Inspired Oxygen ( 100 FIO2) Intake & Output 09/29/16 09/30/16 10/01/16 10/02/16 23:59 23:59 23:59 23:59 Intake Total 2204 520 240 Output Total 200 400 550 400 Balance -200 1804 -30 -160 Patient's weight 64.467 kg 63.957 kg 63.588 kg General: Alert, Oriented x3, Cooperative, No acute distress, Fatigue Respiratory: Diminished Cardiovascular: Regular rate, Regular rate and rhythm, Normal S1, No Gallops, Rubs/Murmurs, Normal S2, Good Pedal Pulses GI: Normal bowel sounds, Soft, Non tender, No hepatospenomegaly, No masses Extremities/Musculoskeletal: Normal pulses Skin: Warm,Dry and Intact, No rashes, No breakdown, No significant lesion Neurological: Normal Steady Gait, Normal speech, Normal tone, Cranial nerves 3- 12 NL Psych/Mental Status: Appropriate Result Diagrams: 09/30/16 04:35 10/02/16 05:30 Labs (last 24 hours): Laboratory Results - last 24 hr 10/01/16 10/02/16 04:55 05:30 ESR 18 Sodium 139 Potassium 3.8 Chloride 105 Carbon Dioxide 30 Anion Gap 8 BUN 19 H Creatinine 0.70 Estimated GFR (MDRD) > 60 Glucose 131 H Calculated Osmolality 272 Calcium 9.1 Lab/DI/Studies Reviewed: EKG: NSR, NO ST or ST wave changes noted Medications Hydrochlorothiazide (Hydrochlorothiazide) 25 mg PO DAILY [facility] Stop: 10/14/16 08:59 Last Admin: 10/02/16 08:55 Dose: 25 mg Albuterol/Ipratropium (Duoneb) 3 ml NEB Q2H PRN PRN Reason: Wheezing Stop: 10/13/16 16:59 Anastrozole (Arimidex) 1 mg PO DAILY [facility] Stop: 10/14/16 08:59 Last Admin: 10/02/16 08:54 Dose: 1 mg Aspirin (Ecotrin) 81 mg PO DAILY [facility] Stop: 10/14/16 08:59 Last Admin: 10/02/16 08:54 Dose: 81 mg Clorazepate Dipotassium (Tranxene) 3.75 mg PO Q8H PRN PRN Reason: Anxiety Stop: 10/29/16 17:21 Last Admin: 09/30/16 23:30 Dose: 3.75 mg Ucreu-3-Kekg Ethyl Esters (Lovaza (Loraine-3 Acid Ethyl Esters)) 1,000 mg PO DAILY [facility] Stop: 10/14/16 08:59 Last Admin: 10/02/16 08:56 Dose: 1,000 mg Ondansetron HCl (Zofran) 4 mg IV Q8H PRN PRN Reason: Nausea/Vomiting Stop: 10/13/16 16:59 Pantoprazole Sodium (Protonix) 40 mg PO 0600 [facility] Stop: 10/13/16 16:59 Last Admin: 10/02/16 06:07 Dose: 40 mg Prednisone (Deltasone, Orasone) 60 mg PO DAILYWM [facility] Stop: 10/15/16 16:59 Last Admin: 10/02/16 08:53 Dose: 60 mg Valsartan (Diovan) 320 mg PO QAM [facility] Stop: 10/14/16 08:59 Last Admin: 10/02/16 08:55 Dose: 320 mg - Assessment/Plan (1) BOOP (bronchiolitis obliterans with organizing pneumonia) Acute J84.89 - OTHER SPECIFIED INTERSTITIAL PULMONARY DISEASES Comment/Plan: Patient has cryptogenic organizing pneumonia and therefore would be continued on is prednisone 60 mg p.o. daily patient has minimal symptoms for bronchiolitis and therefore I can a use lower dose of steroids and would try to taper it down another 6 months to a year prognosis remains guarded would follow the patient closely for development of complications (2) PAF (paroxysmal atrial fibrillation) Chronic I48.0 - PAROXYSMAL ATRIAL FIBRILLATION Comment/Plan: Continue current treatment as per Cardiology (3) Pneumonia Acute J18.9 - PNEUMONIA, UNSPECIFIED ORGANISM due to unspecified organism bilateral lower lobe of lung J18.9 - Pneumonia, unspecified organism Comment/Plan: I do not think patient has significant pneumonia as this time and is off of antibiotics
--- NOTE | 2016-10-02 15:09 | GENMEDPROG ---
Chief Complaint: Some better today. Does not like the high-dose steroids but understands the reasoning behind treatment. No chest pain or shortness of breath and no further vagal events. Notes Reviewed: Yes: Events from last night noted and discussed with Clinical Staff Current Medication List: Reviewed Currently: Denies: Cough, Wheezing, BAEZA, SOB, Nausea and Vomiting, Abdominal Pain, Chest Pain - Physical Examination Vital Signs and I&O: Last Vital Signs Temp 98.2 F 10/02/16 11:34 Pulse 87 10/02/16 14:00 Resp 24 10/02/16 11:34 BP 151/53 L 10/02/16 11:34 Pulse Ox 92 10/02/16 11:34 Oxygen Pulse Oxygen Saturation 92 O2 Device Nasal Cannula Oxygen Flow Rate 2 Fraction of Inspired Oxygen ( 100 FIO2) Intake & Output 09/29/16 09/30/16 10/01/16 10/02/16 23:59 23:59 23:59 23:59 Intake Total 2204 520 460 Output Total 200 400 550 400 Balance -200 1804 -30 60 Patient's weight 64.467 kg 63.957 kg 63.588 kg General: Alert, Oriented x3, Cooperative, Mild distress. negative: Well appearing (Chronically ill-appearing) HEENT: Normal, PERRLA, EOMI, Anicteric Sclera Neck: Non-tender, Full range of motion, Normal Trachea alignment, Normal inspection. negative: JVD Lymphatics: Normal. negative: Adenopathy Respiratory: Diminished Cardiovascular: Regular rate and rhythm, No Gallops,Rubs/Murmurs GI: Normal bowel sounds, Soft, Non tender, No hepatospenomegaly, No masses Extremities/Musculoskeletal: Normal pulses. 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 No evidence of malignancy. Continue high- dose IV Solu-Medrol. Appreciate Cardiology and Pulmonary consultations. Increase activity and mobility today. (2) Pulmonary nodule seen on imaging study Chronic R91.1 - SOLITARY PULMONARY NODULE Comment/Plan: As above. Nodules consistent with BOOP (3) SSS (sick sinus syndrome) Chronic I49.5 - SICK SINUS SYNDROME Comment/Plan: No further episodes in the last 48 hours. Holding amiodarone and Coreg. If bradycardia recurs likely will need pacemaker placement. As previously noted will not treat elevated blood pressures aggressively due to intolerance and frequent episodes with medication adjustments (4) Vasovagal syncope Acute R55 - SYNCOPE AND COLLAPSE Comment/Plan: As above. This has been a recurrent problem. Extreme sensitivities to medications and intolerant to treatment of hypertension (5) Sinus bradycardia Acute R00.1 - BRADYCARDIA, UNSPECIFIED Comment/Plan: Resolved with atropine. Likely vagal event. Suspect underlying sick sinus syndrome. Holding Coreg and amiodarone (6) PAF (paroxysmal atrial fibrillation) Chronic I48.0 - PAROXYSMAL ATRIAL FIBRILLATION Comment/Plan: Not a candidate for anticoagulation due to falls and repeated syncopal events as well as noncompliance. (7) Gastroesophageal reflux disease Chronic K21.9 - GASTRO-ESOPHAGEAL REFLUX DISEASE WITHOUT ESOPHAGITIS Qualifiers: Esophagitis presence: esophagitis presence not specified Qualified Code(s) : K21.9 - Gastro-esophageal reflux disease without esophagitis Comment/Plan: Cont PPI (8) Hypertension Chronic I10 - ESSENTIAL (PRIMARY) HYPERTENSION Qualifiers: Hypertension type: essential hypertension Qualified Code(s): I10 - Essential (primary) hypertension Comment/Plan: Will not treat as per discussion above. Case Care Discussed with: Patient, Consultants, Nursing Staff, Physical Therapy , Resource Management, Respiratory Therapy, Senior Engineering Tech
[2016-10-02] MEDS ORDERED: TRAMADOL HCL 50 MG TAB PO PRN (22:23)
[2016-10-02] MEDS ORDERED: SENNA CONCENTRATE TAB PO PRN (22:24)
[2016-10-02] MEDS ORDERED: GUAIFEN 100 MG-DEXTROMETH 10 MG PER 5 ML PO PRN (22:24)
[2016-10-02] MEDS ORDERED: TEMAZEPAM 15 MG CAP PO PRN (22:24)
[2016-10-02] MEDS ORDERED: BENZONATATE 100 MG PERLES PO PRN (22:24)
[2016-10-02] MEDS ORDERED: ACETAMINOPHEN 325 MG/TAB TABLET PO PRN (22:24)
[2016-10-02] MEDS ORDERED: BISACODYL 5 MG TAB PO PRN (22:24)
[2016-10-02] MEDS ORDERED: Docusate Sodium 100 MG CAP PO PRN (22:24)
[2016-10-02] MEDS ORDERED: SIMETHICONE 80 MG TAB PO PRN (22:24)
[2016-10-02] MEDS ORDERED: PROMETHAZINE 25 MG/ML VIAL IV PRN (22:24)
[2016-10-02] MEDS ORDERED: ACETAMINOPHEN 325 MG SUPP PR PRN (22:24)
[2016-10-02] MEDS: CLORAZEPATE DIPOTASSIUM 3.75 MG TAB PO PRN (22:34)
[2016-10-03] MEDS: Albuterol/Ipratropium Neb 3 ML NEB NEB SCH ×4 (01:31→20:52)
[2016-10-03 04:15] LABS: AUTOMATED BASOPHIL 0.2 % (0-2); AUTOMATED LYMPH 12.5 % (17-44); AUTOMATED MONOCYTE 6.8 % (3-10); AUTOMATED NEUTROPHIL 80.5 % (45-76); BLOOD UREA NITROGEN 23 MG/DL (7-17); CALCIUM 8.9 MG/DL (8.4-10.2); CALCULATED OSMOLALITY 273 MOs/Kg (270-290); CHLORIDE 102 mEq/L (98-107); GLUCOSE 120 mg/dL (70-99); MPV 8.5 fL (7.4-10.4); SODIUM LEVEL 139 mEq/L (137-146)
[2016-10-03] MEDS: PANTOPRAZOLE 40 MG TAB PO SCH (06:14)
--- NOTE | 2016-10-03 07:19 | PCM.CARD ---
- Subjective Reason for visit: For sinus bradycardia with syncope Current Assessment: No New Symptoms, Cough, Shortness of Breath (Mild shortness of breath at rest, required oxygen to be restarted yesterday with low saturations). negative: Sputum Selected Entries 10/02/16 10/02/16 10/02/16 17:24 19:26 22:34 Pulse Rate 78 87 80 10/02/16 10/03/16 10/03/16 23:47 00:06 02:43 Pulse Rate 74 67 69 10/03/16 10/03/16 10/03/16 04:00 04:42 06:11 Pulse Rate 68 63 66 Vital Signs: Last Vital Signs Temp 98.0 F 10/03/16 04:00 Pulse 66 10/03/16 06:11 Resp 18 10/03/16 04:00 BP 148/63 10/03/16 04:00 Pulse Ox 92 10/03/16 04:00 Vital Signs Temp 98.0 F 10/03/16 07:58 Pulse 69 10/03/16 07:58 Resp 18 10/03/16 07:58 BP 188/81 H 10/03/16 07:58 Pulse Ox 92 10/03/16 07:58 Intake & Output 10/01/16 10/02/16 10/03/16 23:59 23:59 23:59 Intake Total 520 730 60 Output Total 550 700 Balance -30 30 60 Patient's weight 141 lb 140 lb 3 oz 140 lb 6 oz Intake: Oral 520 730 60 Output: Urine 550 700 Other: Elimination Method Bedpan Bedpan Number of Unmeasured 1 1 Voids Urine Color Yellow Yellow Dark Stool Size Moderate Stool Description Formed Brown Black Wt Change in KG 0.510 kg loss 0.369 kg loss 0.085 kg gained Weight Change from 1 lb(s) loss 13 oz loss 3 oz gained Previous Weight Weight (Calculated 63.957 63.588 63.673 Kilograms) Respiratory: Diminished Jugular Vein Distention: None Pulse Rhythm: Regular EKG Rhythm: Sinus Rhythm EKG Ectopy: negative: Runs >10 beats (No recurrent pauses or bradycardia of note ) Heart Sounds: S1 & S2. 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
[2016-10-03] MEDS: PREDNISONE 20 MG TAB PO SCH (08:10)
[2016-10-03] MEDS: ANASTROZOLE 1 MG TAB PO SCH (08:11)
[2016-10-03] MEDS: HYDROCHLOROTHIAZIDE 25 MG TAB PO SCH (08:12)
[2016-10-03] MEDS: VALSARTAN 160 MG TAB PO SCH (08:12)
[2016-10-03] MEDS: OMEGA-3-ACID ETHYL ESTERS 1000 MG CAP PO SCH (08:12)
--- NOTE | 2016-10-03 08:28 | PCM.DCS92 ---
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 Discussed with Cardiology this morning, they feel it is quite clearly amiodarone toxicity as this is 1 of the medications that can cause the hypersensitivity and boop. As such, she has been taken off of her amiodarone. She wishes to follow up with her outpatient special education para professional in [place]. 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 No evidence of malignancy. Patient was started on high-dose IV Solu-Medrol, she is now on 60 mg prednisone daily per Pulmonary Dr. Garcia recommendation. She will be on this for several months, follow up with Dr. Garcia as an outpatient. She will be discharging home today on 60 mg p.o. prednisone, she was also started on PPI. (3) Sinus bradycardia Acute R00.1 - BRADYCARDIA, UNSPECIFIED Present on Admission: No Comment: Resolved with atropine. Likely vagal event. Suspect underlying sick sinus syndrome. Holding Coreg and amiodarone (4) Vasovagal syncope Acute R55 - SYNCOPE AND COLLAPSE Comment: As above. This has been a recurrent problem. Extreme sensitivities to medications and intolerant to treatment of hypertension (5) PAF (paroxysmal atrial fibrillation) Chronic I48.0 - PAROXYSMAL ATRIAL FIBRILLATION Present on Admission: No Comment: Not a candidate for anticoagulation due to falls and repeated syncopal events as well as noncompliance. (6) SSS (sick sinus syndrome) Chronic I49.5 - SICK SINUS SYNDROME Comment: No further episodes in the last 48 hours. Holding amiodarone and Coreg. If bradycardia recurs likely will need pacemaker placement. As previously noted will not treat elevated blood pressures aggressively due to intolerance and frequent episodes with medication adjustments Discharge Disposition: Home Discharge Condition: Good Cognitive Discharge Status: Unimpaired Fuctional Discharge Status: Independent Home Medications / New Prescriptions: New Bisacodyl [Dulcolax] 10 mg PO DAILY PRN #30 tablet PRN Reason: Constipation - Alternative Pantoprazole Sodium [Protonix] 40 mg PO 0600 #30 tablet Prednisone [Deltasone, Orasone] 60 mg PO DAILYWM 30 Days Valsartan [Diovan] 320 mg PO QAM 30 Days Continue Aspirin (Enteric Coated) [Halfprin] 81 mg PO DAILY Anastrozole [Arimidex] 1 mg PO DAILY Tramadol HCl [Ultram] 50 mg PO Q4H PRN PRN Reason: Pain Discontinued Amiodarone [Cordarone, Pacerone] 200 mg PO QAM Valsartan/Hydrochlorothiazide [Valsartan-Hctz 320-25 mg Tab] 1 tab PO DAILY HydrALAZINE (Cardiovascular) [Apresoline] 25 mg PO .TID WITH FOOD Carvedilol [Coreg] 6.25 mg PO BID O2 Device: Room Air Diet at Discharge: Cardiac Activity: As Tolerated, No Heavy Lifting (nothing over 30 lbs), No Driving ( while using pain medications) Call Office For: Worsening Symptoms, Wound is Draining Pus, Fever over 101 F - DC Summary Notes HPI/Notes: This is a pleasant 86-year-old female with a history of breast cancer who was admitted to the hospital after lung biopsy ordered by Dr. Holliday her oncologist due to concerns with pulmonary nodules. Pathology returned book. Patient stayed in the hospital due to symptomatic bradycardia and vasovagal events. Her blood pressure has been labile. All of her cardiac medications except for her ARB have been discontinued, she has been relatively stable. She will be evaluated by Physical therapy this morning, and if there are no concerns requiring rehabilitation or senior care placement, she will be discharged home later today. Please see the hospital problems and discharge problems above for details of the hospital course including diagnostics and treatment. The plan of care including medications, prognosis, follow-up including alarm symptoms for which medical care should be sought were reviewed with the patient and any available family members/caretakers. The patient is agreeable to discharge today, and all questions were answered by me to their satisfaction. Hospital Course Note:: Discharge summary on patient named RENA ROJO admitted to [facility] on 09/30/16 by Stoney Bunch MD. Date of discharge is []. Total Time: 41 - Physical Exam Vital Signs: Last Vital Signs Temp 98.0 F 10/03/16 07:58 Pulse 69 10/03/16 07:58 Resp 18 10/03/16 07:58 BP 188/81 H 10/03/16 07:58 Pulse Ox 92 10/03/16 07:58 Oxygen Pulse Oxygen Saturation 92 O2 Device Room Air Oxygen Flow Rate 1 Fraction of Inspired Oxygen ( 100 FIO2) Constitutional: Alert (Awake, Fully oriented. Normal and appropriate affect.Well appearing. Well nourished.), No apparent distress Oriented to: Time, Person, Place - HEENT Head: Normal (no bruit, NVD or thyromegaly, she has a thyroid surgery scar), Other (No cervical lymphadenopathy. No supraclavicular lymphadenopathy. Neck: No palpable mass, supple , trachea midline.) Eye: Normal (pupils equal, reactive to light, and round; EOMI, Sclera white) Oropharynx: Normal (Pharynx: Moist without exudate,Gums-no swelling, No oropharyngeal lesions or erythema, Mucous membranes are dry.) ENT EAC: Normal (No oropharyngeal lesions or erythema. Mucous membranes are dry. ) TMJ: Normal Nose: No Symptoms Reported (septum midline, Nares patent, without discharge or bleeding.) - Respiratory/Cardiovascular Respiratory: Diminished Cardiovascular: Normal (RRR , Normal S1, S2. No murmurs, rubs, or gallops. PMI non-displaced. Carotids: no carotid bruits. No bradycardia or tachycardia. DP pulses 2+ bilaterally.) - GI Auscultation: Normal (normal active sounds) Palpation: Normal (Soft,non distended,nontender. No hepatosplenomegaly.) Tenderness: Non tender (No rebound or guarding) - Musculoskeletal Back: Normal (Non-Tender) Extremities: Normal (Normal tone, DP pulses 2+ bilaterally, No cyanosis or edema bilaterally, FROM bilaterally.), Femoral Pulse, Pedal Pulse, Radial Pulse. negative: Calf Tenderness, Clubbing, Cyanosis, Edema, Pedal Edema - Integumentary Lymphatics: Normal. negative: Adenopathy - Neurologic Memory Impaired: Normal Cerebellar: Normal. negative: Ataxia, Past-Pointing, Tremor Mood Description: Normal (Fully oriented. Normal and appropriate affect.) Perception: Normal (Normal and appropriate affect.)
--- NOTE | 2016-10-03 09:14 | PCM.PULM ---
Chief Complaint: Uneventful overnight Patient in bed alert and responsive feeing less fatigued breathing is improved. Patient is ambulating often Current medication list and notes reviewed:yes, Events from last night noted and discussed with Clinical Staff DVT/GI prophylaxis:yes - Physical Examination Vital Signs and I&O: Last Vital Signs Temp 98.0 F 10/03/16 07:58 Pulse 69 10/03/16 07:58 Resp 18 10/03/16 07:58 BP 188/81 H 10/03/16 07:58 Pulse Ox 92 10/03/16 07:58 Oxygen Pulse Oxygen Saturation 92 O2 Device Room Air Oxygen Flow Rate 1 Fraction of Inspired Oxygen ( 100 FIO2) Intake & Output 09/30/16 10/01/16 10/02/16 10/03/16 23:59 23:59 23:59 23:59 Intake Total 2204 520 730 60 Output Total 400 550 700 Balance 1804 -30 30 60 Patient's weight 64.467 kg 63.957 kg 63.588 kg 63.673 kg General: Alert, Oriented x3, No acute distress, Fatigue Respiratory: Normal - CTA, Diminished Cardiovascular: Regular rate, Regular rate and rhythm, Normal S1, No Gallops, Rubs/Murmurs, Normal S2, Good Pedal Pulses (Dp pulses 2+ bilaterally) GI: Normal bowel sounds, Soft, Non tender, No hepatospenomegaly, No masses Extremities/Musculoskeletal: Normal pulses Skin: Warm,Dry and Intact, No rashes, No breakdown, No significant lesion Neurological: Normal Steady Gait, Normal speech, Cranial nerves 3-12 NL Psych/Mental Status: Normal Affect, Cooperative Result Diagrams: 10/03/16 03:19 10/03/16 03:19 Labs (last 24 hours): Laboratory Results - last 24 hr 10/01/16 10/03/16 10/03/16 04:55 03:19 03:19 WBC 7.6 RBC 3.79 L Hgb 10.0 L Hct 30.3 L MCV 80 L MCH 26.4 L MCHC 33.0 RDW 18.2 H Plt Count 214 MPV 8.5 Neut % (Auto) 80.5 H Lymph % (Auto) 12.5 L [place] % (Auto) 6.8 Eos % (Auto) 0.0 Baso % (Auto) 0.2 Absolute Neuts (auto) 6.08 Absolute Lymphs (auto) 0.91 Sodium 139 Potassium 3.5 Chloride 102 Carbon Dioxide 30 Anion Gap 11 BUN 23 H Creatinine 0.70 Estimated GFR (MDRD) > 60 Glucose 120 H Calculated Osmolality 273 Calcium 8.9 Rheumatoid Factor <10.0 SWAPNIL Titer Negative Lab/DI/Studies Reviewed: EKG: NSR, NO ST or ST wave changes noted Medications: Hydrochlorothiazide (Hydrochlorothiazide) 25 mg PO DAILY LYNN Stop: 10/14/16 08:59 Last Admin: 10/02/16 08:55 Dose: 25 mg Albuterol/Ipratropium (Duoneb) 3 ml NEB Q2H PRN PRN Reason: Wheezing Stop: 10/13/16 16:59 Anastrozole (Arimidex) 1 mg PO DAILY LYNN Stop: 10/14/16 08:59 Last Admin: 10/02/16 08:54 Dose: 1 mg Aspirin (Ecotrin) 81 mg PO DAILY LYNN Stop: 10/14/16 08:59 Last Admin: 10/02/16 08:54 Dose: 81 mg Clorazepate Dipotassium (Tranxene) 3.75 mg PO Q8H PRN PRN Reason: Anxiety Stop: 10/29/16 17:21 Last Admin: 09/30/16 23:30 Dose: 3.75 mg Rbzqm-2-Oesk Ethyl Esters (Lovaza ([place]-3 Acid Ethyl Esters)) 1,000 mg PO DAILY LYNN Stop: 10/14/16 08:59 Last Admin: 10/02/16 08:56 Dose: 1,000 mg Ondansetron HCl (Zofran) 4 mg IV Q8H PRN PRN Reason: Nausea/Vomiting Stop: 10/13/16 16:59 Pantoprazole Sodium (Protonix) 40 mg PO 0600 LYNN Stop: 10/13/16 16:59 Last Admin: 10/02/16 06:07 Dose: 40 mg Prednisone (Deltasone, Orasone) 60 mg PO DAILYWM LYNN Stop: 10/15/16 16:59 Last Admin: 10/02/16 08:53 Dose: 60 mg Valsartan (Diovan) 320 mg PO QAM LYNN Stop: 10/14/16 08:59 Last Admin: 10/02/16 08:55 Dose: 320 mg - Assessment/Plan (1) 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 daily patient has minimal symptoms for bronchiolitis and therefore I can a use lower dose of steroids and would try to taper it down another 6 months to a year prognosis remains guarded would follow the patient closely for development of complications (2) PAF (paroxysmal atrial fibrillation) Chronic I48.0 - PAROXYSMAL ATRIAL FIBRILLATION Comment/Plan: Continue current treatment as per Cardiology (3) Pneumonia Acute J18.9 - PNEUMONIA, UNSPECIFIED ORGANISM due to unspecified organism bilateral lower lobe of lung J18.9 - Pneumonia, unspecified organism Comment/Plan: I do not think patient has significant pneumonia as this time and is off of antibiotics
[2016-10-04] MEDS: Albuterol/Ipratropium Neb 3 ML NEB NEB SCH ×2 (02:22→08:43)
[2016-10-04] MEDS: PANTOPRAZOLE 40 MG TAB PO SCH (05:15)
--- NOTE | 2016-10-04 07:55 | PCM.DCS92 ---
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 This medication has been discontinued, she will follow up with her outside taxicab starter in [place] to discuss initiation of another agent. 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 No evidence of malignancy. Patient was started on high-dose IV Solu-Medrol, she is now on 60 mg prednisone daily per Pulmonary Dr. Garcia recommendation. She will be on this for several months, follow up with Dr. Garcia as an outpatient. She will be discharging home today on 60 mg p.o. prednisone, she was also started on PPI. (3) Sinus bradycardia Acute R00.1 - BRADYCARDIA, UNSPECIFIED Present on Admission: No Comment: Resolved with atropine. Likely vagal event. Suspect underlying sick sinus syndrome. Holding Coreg and amiodarone (4) Vasovagal syncope Acute R55 - SYNCOPE AND COLLAPSE Comment: As above. This has been a recurrent problem. Extreme sensitivities to medications and intolerant to treatment of hypertension (5) PAF (paroxysmal atrial fibrillation) Chronic I48.0 - PAROXYSMAL ATRIAL FIBRILLATION Present on Admission: No Comment: Not a candidate for anticoagulation due to falls and repeated syncopal events as well as noncompliance. (6) SSS (sick sinus syndrome) Chronic I49.5 - SICK SINUS SYNDROME Comment: No further episodes in the last 48 hours. Holding amiodarone and Coreg. If bradycardia recurs likely will need pacemaker placement. As previously noted will not treat elevated blood pressures aggressively due to intolerance and frequent episodes with medication adjustments Discharge Disposition: Discharge w/ Home Health Discharge Condition: Good Fuctional Discharge Status: Independent Home Medications / New Prescriptions: New Bisacodyl [Dulcolax] 10 mg PO DAILY PRN #30 tablet PRN Reason: Constipation - Alternative Pantoprazole Sodium [Protonix] 40 mg PO 0600 #30 tablet Prednisone [Deltasone, Orasone] 60 mg PO DAILYWM 30 Days Valsartan [Diovan] 320 mg PO QAM 30 Days Continue Aspirin (Enteric Coated) [Halfprin] 81 mg PO DAILY Anastrozole [Arimidex] 1 mg PO DAILY Tramadol HCl [Ultram] 50 mg PO Q4H PRN PRN Reason: Pain Discontinued Amiodarone [Cordarone, Pacerone] 200 mg PO QAM Valsartan/Hydrochlorothiazide [Valsartan-Hctz 320-25 mg Tab] 1 tab PO DAILY HydrALAZINE (Cardiovascular) [Apresoline] 25 mg PO .TID WITH FOOD Carvedilol [Coreg] 6.25 mg PO BID O2 Device: Nasal Cannula Diet at Discharge: Cardiac Activity: As Tolerated, No Heavy Lifting (nothing over 30 lbs), No Driving ( while using pain medications) Call Office For: Worsening Symptoms, Wound is Draining Pus, Fever over 101 F - DC Summary Notes HPI/Notes: This is a pleasant 86-year-old female with a history of breast cancer who was admitted to the hospital after lung biopsy ordered by Dr. Holliday her oncologist due to concerns with pulmonary nodules. Pathology returned book. Patient stayed in the hospital due to symptomatic bradycardia and vasovagal events. Her blood pressure has been labile. All of her cardiac medications except for her ARB have been discontinued, she has been relatively stable. She will be evaluated by Physical therapy this morning, and if there are no concerns requiring rehabilitation or usp placement, she will be discharged home later today. Please see the hospital problems and discharge problems above for details of the hospital course including diagnostics and treatment. The plan of care including medications, prognosis, follow-up including alarm symptoms for which medical care should be sought were reviewed with the patient and any available family members/caretakers. The patient is agreeable to discharge today, and all questions were answered by me to their satisfaction. Hospital Course Note:: Discharge summary on patient named RENA ROJO admitted to [facility] on 09/30/16 by Stoney Bunch MD. Date of discharge is []. Total Time: 39 - Physical Exam Vital Signs: Last Vital Signs Temp 97.8 F 10/04/16 03:30 Pulse 63 10/04/16 06:00 Resp 18 10/04/16 03:30 BP 138/66 10/04/16 03:30 Pulse Ox 92 10/04/16 03:30 Oxygen Pulse Oxygen Saturation 92 O2 Device Nasal Cannula Oxygen Flow Rate 1 Fraction of Inspired Oxygen ( 100 FIO2) Constitutional: Alert (Awake, Fully oriented. Normal and appropriate affect.Well appearing. Well nourished.), No apparent distress Oriented to: Time, Person, Place - HEENT Head: Normal (no bruit, NVD or thyromegaly, she has a thyroid surgery scar), Other (No cervical lymphadenopathy. No supraclavicular lymphadenopathy. Neck: No palpable mass, supple , trachea midline.) Eye: Normal (pupils equal, reactive to light, and round; EOMI, Sclera white) Oropharynx: Normal (Pharynx: Moist without exudate,Gums-no swelling, No oropharyngeal lesions or erythema, Mucous membranes are dry.) ENT EAC: Normal (No oropharyngeal lesions or erythema. Mucous membranes are dry. ) TMJ: Normal Nose: No Symptoms Reported (septum midline, Nares patent, without discharge or bleeding.) - Respiratory/Cardiovascular Respiratory: Diminished - GI Auscultation: Normal (normal active sounds) Palpation: Normal (Soft,non distended,nontender. No hepatosplenomegaly.) Tenderness: Non tender (No rebound or guarding) - Musculoskeletal Back: Normal (Non-Tender) Extremities: Normal (Normal tone, DP pulses 2+ bilaterally, No cyanosis or edema bilaterally, FROM bilaterally.), Femoral Pulse, Pedal Pulse, Radial Pulse. negative: Calf Tenderness, Clubbing, Cyanosis, Edema, Pedal Edema - Integumentary Lymphatics: Normal. negative: Adenopathy - Neurologic Memory Impaired: Normal Cerebellar: Normal. negative: Ataxia, Past-Pointing, Tremor Mood Description: Normal (Fully oriented. Normal and appropriate affect.) Perception: Normal (Normal and appropriate affect.)
[2016-10-04] MEDS: PREDNISONE 20 MG TAB PO SCH (08:32)
[2016-10-04] MEDS: ANASTROZOLE 1 MG TAB PO SCH (08:32)
[2016-10-04] MEDS: VALSARTAN 160 MG TAB PO SCH (08:32)
[2016-10-04] MEDS: OMEGA-3-ACID ETHYL ESTERS 1000 MG CAP PO SCH (08:33)
[2016-10-04] MEDS: HYDROCHLOROTHIAZIDE 25 MG TAB PO SCH (08:33)
--- NOTE | 2016-10-04 09:28 | PCM.PULM ---
Chief Complaint: Uneventful overnight Patient sitting on chair today. Has been ambulating in hallway. Less shortness of breathe on exertions. Uses oxygen PRN. Denies chest pain or cough Current medication list reviewed:yes Notes reviewed:yes, Events from last night noted and discussed with Clinical Staff - Physical Examination Vital Signs and I&O: Last Vital Signs Temp 98.3 F 10/04/16 08:00 Pulse 63 10/04/16 08:00 Resp 18 10/04/16 08:00 BP 178/80 10/04/16 08:00 Pulse Ox 96 10/04/16 08:43 Oxygen Pulse Oxygen Saturation 96 O2 Device Nasal Cannula Oxygen Flow Rate 1 Fraction of Inspired Oxygen ( 100 FIO2) Intake & Output 10/01/16 10/02/16 10/03/16 10/04/16 23:59 23:59 23:59 23:59 Intake Total 520 730 900 Output Total 947 597 1639 600 Balance -30 30 -150 -600 Patient's weight 63.957 kg 63.588 kg 63.673 kg 63.56 kg General: Alert, Oriented x3, Cooperative, No acute distress, Fatigue (improved) Respiratory: Normal - CTA, Diminished Cardiovascular: Regular rate, Regular rate and rhythm, Normal S1, No Gallops, Rubs/Murmurs, Normal S2 GI: Normal bowel sounds, Soft, Non tender, No hepatospenomegaly, No masses Extremities/Musculoskeletal: Normal pulses Skin: Warm,Dry and Intact, No rashes, No breakdown, No significant lesion Neurological: Normal Steady Gait, Normal speech, Strength at 5/5 X4 ext, Normal tone, Cranial nerves 3-12 NL Psych/Mental Status: Appropriate Result Diagrams: 10/03/16 03:19 10/03/16 03:19 Lab/DI/Studies Reviewed: EKG: NSR, NO ST or ST wave changes noted Medications Hydrochlorothiazide (Hydrochlorothiazide) 25 mg PO DAILY LYNN Stop: 10/14/16 08:59 Last Admin: 10/02/16 08:55 Dose: 25 mg Albuterol/Ipratropium (Duoneb) 3 ml NEB Q2H PRN PRN Reason: Wheezing Stop: 10/13/16 16:59 Anastrozole (Arimidex) 1 mg PO DAILY LYNN Stop: 10/14/16 08:59 Last Admin: 10/02/16 08:54 Dose: 1 mg Aspirin (Ecotrin) 81 mg PO DAILY [facility] Stop: 10/14/16 08:59 Last Admin: 10/02/16 08:54 Dose: 81 mg Clorazepate Dipotassium (Tranxene) 3.75 mg PO Q8H PRN PRN Reason: Anxiety Stop: 10/29/16 17:21 Last Admin: 09/30/16 23:30 Dose: 3.75 mg Mvxnf-9-Sctl Ethyl Esters (Lovaza ([place]-3 Acid Ethyl Esters)) 1,000 mg PO DAILY [facility] Stop: 10/14/16 08:59 Last Admin: 10/02/16 08:56 Dose: 1,000 mg Ondansetron HCl (Zofran) 4 mg IV Q8H PRN PRN Reason: Nausea/Vomiting Stop: 10/13/16 16:59 Pantoprazole Sodium (Protonix) 40 mg PO 0600 [facility] Stop: 10/13/16 16:59 Last Admin: 10/02/16 06:07 Dose: 40 mg Prednisone (Deltasone, Orasone) 60 mg PO DAILYWM [facility] Stop: 10/15/16 16:59 Last Admin: 10/02/16 08:53 Dose: 60 mg Valsartan (Diovan) 320 mg PO QAM [facility] Stop: 10/14/16 08:59 Last Admin: 10/02/16 08:55 Dose: 320 mg - Assessment/Plan (1) BOOP (bronchiolitis obliterans with organizing pneumonia) Acute J84.89 - OTHER SPECIFIED INTERSTITIAL PULMONARY DISEASES Comment/Plan: Improved. Would continue prednisone 60 mg p.o. daily. Patient may be discharged home and i will follow up with patient in out patient clinic with in one week. (2) PAF (paroxysmal atrial fibrillation) Chronic I48.0 - PAROXYSMAL ATRIAL FIBRILLATION Comment/Plan: Stable. Continue current treatment as per Cardiology (3) Pneumonia Acute J18.9 - PNEUMONIA, UNSPECIFIED ORGANISM due to unspecified organism bilateral lower lobe of lung J18.9 - Pneumonia, unspecified organism Comment/Plan: Improved. Patient continue prednisone po. Would follow up with patient with breathing test and cxray in out patient clinic with one week
[2016-10-04 10:52] VITALS: BP 147/64; PULSE 60; TEMP 98.1
== END 2016-10-04 14:14 | disposition home health service (06) | DRG 206 ==
LOC: DI 10:06 → PCU 16:52 → EEVIPCON 09-30 10:22 → OBSVTOIN 09-30 10:22
PROVIDERS: ADMIT Internal Medicine; ATTEND Internal Medicine
PROC: 0BBG3ZX Excision of Left Upper Lung Lobe, Percutaneous Approach, Diagnostic (ICD-10-PCS; principal; 2016-09-29)
PROC: 4A033R1 Measurement of Arterial Saturation, Peripheral, Percutaneous Approach (ICD-10-PCS; 2016-09-30)
DX: J70.4 Drug-induced interstitial lung disorders, unspecified (principal); I49.5 Sick sinus syndrome; C50.919 Malignant neoplasm of unspecified site of unspecified female breast; T46.2X5A Adverse effect of other antidysrhythmic drugs, initial encounter; Y92.9 Unspecified place or not applicable; I48.0 Paroxysmal atrial fibrillation; I10 Essential (primary) hypertension; M19.042 Primary osteoarthritis, left hand; M19.041 Primary osteoarthritis, right hand; F41.9 Anxiety disorder, unspecified; E87.6 Hypokalemia; K86.9 Disease of pancreas, unspecified; Z91.19 Patient's noncompliance with other medical treatment and regimen; Z87.442 Personal history of urinary calculi; Z91.81 History of falling; Z90.49 Acquired absence of other specified parts of digestive tract; Z88.1 Allergy status to other antibiotic agents; Z88.8 Allergy status to other drugs, medicaments and biological substances; Z79.82 Long term (current) use of aspirin; Z92.21 Personal history of antineoplastic chemotherapy
CPT/HCPCS: 32405; 36415; 36600; 71010; 77012; 80048; 80053; 82803; 82962; 83735; 84484; 85025; 85610; 85651; 85730; 86038; 86140; 86431; 87040; 93005; 94640; 94664; 97162; G0378; J0360; J0461; J2250; J2310; J2405; J2930; J3010; J3480; J3490; J7620